=== PATIENT | male | born 1945 | race Caucasian/White ===

== ENCOUNTER → 2020-03-23 | Outpatient (CLI) | payer MEDICARE ==
--- NOTE | 2020-03-23 12:20 | Diagnostic Imaging Report ---
Right Wrist MRI without contrast. History: Injury of right wrist. Trauma. Wrist pain Comparison: None Technique: Coronal PD FS and PD. Axial PD FS. Sagital PD FS. Findings: Tear of the scapholunate ligament predominantly involving the dorsal fibers best seen on series 2 image 11 through 13 and series 4 image 9 through 15. The scapholunate interval is wide measuring 5.5 mm. Minimal bone marrow edema is seen in the scaphoid and lunate bones likely due to a mild contusion. Mild bone marrow edema is seen in the adjacent distal radius also likely due to a mild bone contusion. No cortical fracture is seen. The lunotriquetral ligament is intact. The TFC articulating disc is normal. There is a distal radial ulnar joint effusion and synovitis. There is neutral ulnar variance. No osteochondral lesion. No fracture, osteonecrosis, or dislocation. The extensor tendons are normal. No abnormality of the flexor tendons. Signal intensity within the median nerve is normal. No ganglion cyst. There is normal alignment in the wrist. There is mild dorsal capsular scarring and synovitis. Impression: Tear of the scapholunate ligament predominantly involving the dorsal fibers. The scapholunate interval is wide measuring 5.5 mm. Minimal bone marrow edema is seen in the scaphoid and lunate bones likely due to a mild contusion. Mild bone marrow edema is seen in the adjacent distal radius also likely due to a mild bone contusion. No cortical fracture is seen. Distal radial ulnar joint effusion and synovitis. Mild dorsal capsular scarring and synovitis. Signed by: Dr. Eduardo Crabtree M.D. on 03/23/2020 12:16 PM
--- NOTE | 2020-03-23 12:32 | Diagnostic Imaging Report ---
Right hand MRI without contrast. History: Injury of right wrist. Trauma. Hand pain Comparison: None Technique: Coronal PD FS and PD. Axial PD FS. Sagital PD FS. Findings: No acute fracture, subluxation or avascular necrosis about the right hand. No ligamentous or tendon tear about the hand. The visualized neurovascular bundles are intact. The visualized muscles are normal in size, signal intensity and morphology. Impression: No acute fracture, subluxation or avascular necrosis about the right hand. No ligamentous or tendon tear about the hand. The visualized neurovascular bundles are intact. The visualized muscles are normal in size, signal intensity and morphology. Please see report from MRI right wrist from the same day for further details. Signed by: Dr. Eduardo Crabtree M.D. on 03/23/2020 12:29 PM
== END ==
LOC: MRI 10:29
PROVIDERS: ATTEND Plastic Surgery
DX: M25.531 Pain in right wrist (principal); M79.641 Pain in right hand

== ENCOUNTER → 2020-05-03 | Outpatient (CLI) | payer MEDICARE, OTHER ==
[~2020-05-03] MED LIST: COVID-19 VACC, MRNA(MODERNA)/PF 100 MCG/0.5 ML VIAL IM ONE
== END ==
LOC: EDBD → VACCPMC 19:00
DX: Z23 Encounter for immunization (principal); Z20.828 Contact with and (suspected) exposure to other viral communicable diseases

== ENCOUNTER → 2020-06-05 | Outpatient (CLI) | payer OTHER | LOC: VACCPMC 08:53 | DX: Z23 Encounter for immunization (principal); Z20.822 Contact with and (suspected) exposure to COVID-19 ==